=== PATIENT | female | born 1960 | race American Indian/Alaskan Native ===

== ENCOUNTER 2016-11-14 13:39 | Day surgery (SDC) | payer OTHER ==
[2016-11-14] MEDS ORDERED: NACL 0.9% 1000 ML 1,000 ML IV SCH (15:00)
[2016-11-14] MEDS ORDERED: LOPRESSOR IV ONE (15:22)
--- NOTE | 2016-11-14 15:58 | Anesthesia Consultation ---
Anesthesia Consult and Med Hx Date of service: 11/14/16 - Airway Anesthetic Teeth Evaluation: Good ROM Head & Neck: Adequate Mental/Hyoid Distance: Adequate Intubation Access Assessment: Good - Pulmonary Exam CTA: Yes - Cardiac Exam Cardiac Exam: RRR - Cardiovascular System Hx Hypertension: Yes (2011) Hx Heart Attack/AMI: Yes (2013) Hx Angina: No (denies chest pain, chest tightness. She is very active.) - Hematic Hx Anemia: Yes
--- NOTE | 2016-11-14 15:59 | Anesthesia Day of Surgery ---
Anesthesia Day of Surgery - Day of Surgery Patient Examined: Yes Patient H&P Reviewed: Yes Patient is NPO: Yes Beta Blockers: Yes (given 5 mg lopressor )
[2016-11-14] MEDS ORDERED: WATER FOR IRRIG STERILE ONE (17:37)
[2016-11-14] MEDS ORDERED: WATER FOR IRRIG STERILE IR ONE (17:37)
[2016-11-14] MEDS ORDERED: DIPRIVAN 10 MG/ML IV ONE ×3 (17:38)
[2016-11-14 18:47] VITALS: BP 151/99
--- NOTE | 2016-11-14 19:35 | Discharge Summary ---
Short Stay Discharge Plan Activity: advance as tolerated Weight Bearing Status: Weight Bear as Tolerated Diet: regular Additional Instructions: Post Sedation D/C Instructions When you return home you may resume your regular diet unless otherwise directed. -Go directly home from the hospital and rest quietly. You may resume normal activities tomorrow. -Do NOT drive, return to work, operate any machinery or make any important personal or business decisions today. -Do NOT drink any alcohol or take nerve or sleeping drugs. They add to the effects of the medicine still present in your body. Follow up with: WILLIAM WILKS MD [Primary Care Provider] - 7 Days
--- NOTE | 2016-11-14 19:35 | Operative Report ---
Operative Report Operative Report: Date of procedure: 11/14/2016 Procedure: Colonoscopy with Hot Biopsy Polypectomy and Polyp Ablation. Attending physician: Juan Carlos Rodriguez MD Fisher Oyster: Juan Carlos Rodriguez MD Indication: Patient is a 56-year-old female who presents for colonoscopy for colorectal cancer screening. A colonoscopy serves to evaluate patient so that treatment may be directed based on the findings. Consent: Informed consent was obtained after advising the patient and family regarding nature of this procedure, its indications, potential benefits as well as possible complications including but not limited to bleeding perforation and adverse reaction to medication, infection as well as other cardiopulmonary complications. An informed written and verbal consent was then obtained after due opportunity was provided for questions and answers. Monitoring: Patient was monitored continuously with pulse oximetry and electrocardiographic recordings as well as blood pressure recordings. Vital signs remained stable throughout this procedure with no untoward events. Preoperative assessment: Patient was assessed immediately prior to this procedure for capacity to tolerate monitored anesthesia care and moderate sedation as well as general anesthesia. Patient's ASA classification is 2, Mallampati class is 2, Hyomental distance is 3. Instrument: [facility] video colonoscope Medications: Propofol given intravenously in divided doses. For details please refer to anesthesia records. Description of procedure: Patient was placed in the left lateral decubitus position after achieving sedation, a digital rectal examination was performed following which the colonoscope was introduced into the anal verge and advanced to the cecum which was identified by the cecal valve, the appendiceal orifice, as well as by the cecal strap and direct transillumination. The colonoscope was subsequently withdrawn with careful inspection of all mucosal surfaces. Patient tolerated this procedure well and was subsequently taken to the recovery room. The following findings were noted. Findings: Patient had a few diverticula in the sigmoid and the descending colon. There were multiple diminutive polyps in the sigmoid colon which were removed by hot biopsy polypectomy. There was a diminutive polyp in the descending colon which was ablated. There were no additional abnormalities seen. The rest of the colon to the cecum was normal. On the retroflex view at the anal verge, patient had internal hemorrhoids. Impression: Multiple diminutive sigmoid colon polyps status post hot biopsy polypectomy. Diminutive flat polyp in the descending colon which was ablated Diverticular disease of the colon. Internal hemorrhoids. Plan: Follow pathology report. High-fiber diet. Repeat colonoscopy in 5 years.
== END 2016-11-14 13:40 | disposition home or self-care (01) ==
LOC: GIO 13:39
PROVIDERS: ATTEND Internal Medicine Gastroenterology
DX: Z12.11 Encounter for screening for malignant neoplasm of colon (principal); K63.5 Polyp of colon; K64.8 Other hemorrhoids; K57.30 Diverticulosis of large intestine without perforation or abscess without bleeding; I10 Essential (primary) hypertension; D64.9 Anemia, unspecified; F41.9 Anxiety disorder, unspecified; M19.90 Unspecified osteoarthritis, unspecified site; J45.909 Unspecified asthma, uncomplicated; E11.9 Type 2 diabetes mellitus without complications; Z79.84 Long term (current) use of oral hypoglycemic drugs; Z79.899 Other long term (current) drug therapy; Z83.71 Family history of colonic polyps
CPT/HCPCS: 45384; 45388; 88305; J2704; J7030